=== PATIENT | male | born 1940 | race Caucasian/White ===

== ENCOUNTER 2019-06-19 11:33 | Day surgery (SDC) | payer MEDICARE ==
[~2019-06-19] VITALS: Ht 175.3 cm; Wt 88.5 kg
[~2019-06-19 11:33] MED LIST: AMLO10TA PO; ATOR10TA87 PO; CALC0.253 PO; FLO0.4C PO; IRON-12 PO; POLY17PO36 PO; SODI650T29 PO
[2019-06-19] MEDS ORDERED: normal saline 1000ml 1,000 ML IV SCH (12:00)
[2019-06-19] MEDS ORDERED: ASPI81TA30 PO (12:03)
[2019-06-19 13:00] VITALS: BP 159/88
[2019-06-19] MEDS ORDERED: fentaNYL/PF 50MCG/1 ML 2ML syringe IV PRN (13:10)
[2019-06-19] MEDS ORDERED: heparin 1,000 units/ml 10ml inj ICATH ONE (13:10)
[2019-06-19] MEDS ORDERED: LIDOcaine 1%/PF 5ML 10 MG/ML VIAL SQ ONE (13:10)
[2019-06-19] MEDS ORDERED: midazolam 2 mg/2 ml injection IV PRN (13:10)
[2019-06-19] MEDS ORDERED: fentaNYL/PF 50MCG/1 ML 2ML syringe ONE (13:17)
[2019-06-19] MEDS ORDERED: heparin 1,000unit/ml 10ml vial 10 ML ONE (13:17)
[2019-06-19] MEDS ORDERED: LIDOcaine 1%/PF 5ML 10 MG/ML VIAL ONE (13:17)
[2019-06-19] MEDS ORDERED: midazolam 2 mg/2 ml injection ONE (13:17)
[2019-06-19] MEDS ORDERED: gelatin sponge, absorbable (Gelfoam 12-7MM) sponge TP ONE (14:08)
[2019-06-19 14:28] VITALS: BP 168/87
[2019-06-19 14:45] VITALS: BP 162/89
[2019-06-19 15:00] VITALS: BP 151/90
== END 2019-06-19 15:30 | disposition home or self-care (01) ==
LOC: SSTAY O 11:33
PROVIDERS: ATTEND Radiology Diagnostic Radiology
DX: I12.0 Hypertensive chronic kidney disease with stage 5 chronic kidney disease or end stage renal disease (principal); N18.6 End stage renal disease; Z79.899 Other long term (current) drug therapy; Z79.82 Long term (current) use of aspirin
CPT/HCPCS: 36558; 76937; 77001; 99152; 99153; C1750; C1894; J1644; J2250; J3010; J7030; A9270

== ENCOUNTER 2019-09-11 17:32 | Inpatient (IN) | payer MEDICARE ==
[~2019-09-11] VITALS: Ht 175.3 cm; Wt 82.5 kg
[~2019-09-11 17:32] MED LIST changes: -AMLO10TA PO; +ASPI81TA30 PO; -ATOR10TA87 PO; -IRON-12 PO; -POLY17PO36 PO; -SODI650T29 PO
[2019-09-11 18:19] LABS: CLARITY,URINE CLEAR (Clear); COLOR,URINE YELLOW (Yellow); GLUCOSE, URINE 250 mg/dl (Neg); KETONES,URINE NEGATIVE (Neg); LEUKOCYTE ESTERASE ,URINE NEGATIVE (Neg); NITRITES, URINE NEGATIVE (Neg); OCCULT BLOOD,URINE TRACE-INTACT (Neg); PH,URINE 8.5 (4.8-8.0); PROTEIN,URINE 30 mg/dl (Neg); UROBILINOGEN,URINE 0.2 E.U/dL (0.2-1.0)
[2019-09-11 18:25] LABS: UA COLLECTION TYPE URINAL
[2019-09-11 18:26] LABS: BACTERIA,URINE NONE SEEN /HPF (Neg); MUCUS STRANDS FEW /LPF (Neg); RBC,URINE 0-2 /HPF (0-2); SQUAMOUS EPITHELIAL CELL,UR NONE SEEN /LPF (FEW); WBC,URINE NONE SEEN /HPF (0-4)
[2019-09-11 18:31] LABS: URINE AMPHETAMINE SCREEN NEGATIVE (Neg); URINE BARBITUATE SCREEN NEGATIVE (Neg); URINE BENZODIAZEPINES SCREEN NEGATIVE (Neg); URINE CANNABINOID SCREEN NEGATIVE (Neg); URINE COCAINE SCREEN NEGATIVE (Neg); URINE METHADONE SCREEN NEGATIVE (Neg); URINE OPIATE SCREEN NEGATIVE (Neg); URINE PHENCYCLIDINE SCREEN NEGATIVE (Neg)
[2019-09-11 19:08] LABS: BASOPHILS % (AUTO) 1.3 % (0-1); EOSINOPHILS # (AUTO) 0.2 X10'3 (0-0.9); EOSINOPHILS % (AUTO) 5.4 % (0-6); HEMATOCRIT 30.7 % (42.0-52.0); HEMOGLOBIN 10.3 g/dl (14.0-17.9); LYMPHOCYTES # (AUTO) 0.7 X10'3 (1.1-4.8); LYMPHOCYTES % (AUTO) 20.8 % (21-51); MEAN CORPUSCULAR HEMOGLOBIN 31.4 PG (27.0-31.0); MEAN CORPUSCULAR HGB CONC 33.5 g/dL (33.0-36.5); MEAN CORPUSCULAR VOLUME 93.6 FL (78-98); MEAN PLATELET VOLUME 7.5 FL (7.4-10.4); MONOCYTES # (AUTO) 0.4 X10'3 (0-0.9); MONOCYTES % (AUTO) 11.6 % (2-12); NEUTROPHILS # (AUTO) 2.1 X10'3 (1.8-7.7); NEUTROPHILS % (AUTO) 60.9 % (42-75); PLATELET COUNT 149 X10'3 (140-440); RED BLOOD COUNT 3.28 X10'6 (4.70-6.10); RED CELL DISTRIBUTION WIDTH 16.4 % (11.5-14.5); WHITE BLOOD COUNT 3.4 X10'3 (4.5-11.0)
[2019-09-11 19:25] LABS: ALANINE AMINOTRANSFERASE 13 U/L (12-78); ALKALINE PHOSPHATASE 56 IU/L (46-116); ANION GAP 7 (8-16); ASPARTATE AMINO TRANSFERASE 7 U/L (10-37); BILIRUBIN,TOTAL 0.4 MG/DL (0.1-1.0); BLOOD UREA NITROGEN 33 MG/DL (7-18); BUN/CREATININE RATIO 5.4 (5.4-32.0); CALCIUM 7.9 MG/DL (8.5-10.1); CHLORIDE 105 MMOL/L (99-107); GLUCOSE 84 MG/DL (70-104); POTASSIUM 4.4 MMOL/L (3.5-5.1); SODIUM 140 MMOL/L (135-145); TOTAL CARBON DIOXIDE 28.4 MMOL/L (24-32); TOTAL PROTEIN 5.9 G/DL (6.4-8.2); eGFR 9 ML/MIN
[2019-09-11 19:28] LABS: LACTIC SEPSIS 0.8 MMOL/L (0.4-2.0)
[2019-09-11 19:31] LABS: ETHANOL < 0.010 GM/DL (0.0-0.010); TROPONIN I < 0.04 NG/ML (0.0-0.05)
[2019-09-11 19:34] LABS: AMMONIA < 10 UMOL/L (11-32)
[2019-09-11] MEDS ORDERED: aspirin 325mg tablet PO ONE (20:30)
[2019-09-11] MEDS ORDERED: acetaminophen 325mg tablet PO PRN (21:45)
[2019-09-11] MEDS ORDERED: acetaminophen 650mg rectal suppository RC PRN (21:45)
[2019-09-11] MEDS ORDERED: bisacodyl 10mg suppository rectal RC PRN (21:45)
[2019-09-11 23:00] VITALS: BP 190/98
[2019-09-11] MEDS: heparin, porcine 5000 units/ml vial SQ SCH (23:12)
[2019-09-12 02:00] VITALS: BP 158/77
[2019-09-12 06:00] VITALS: BP 173/86
--- NOTE | 2019-09-12 06:26 | NUR ---
Problems reprioritized. Patient report given, questions answered & plan of care reviewed with FORREST Wilder.
[2019-09-12 06:35] LABS: BASOPHILS # (AUTO) 0.1 X10'3 (0-0.2); BASOPHILS % (AUTO) 1.2 % (0-1); EOSINOPHILS # (AUTO) 0.2 X10'3 (0-0.9); EOSINOPHILS % (AUTO) 4.8 % (0-6); HEMATOCRIT 31.9 % (42.0-52.0); HEMOGLOBIN 10.7 g/dl (14.0-17.9); LYMPHOCYTES # (AUTO) 0.8 X10'3 (1.1-4.8); LYMPHOCYTES % (AUTO) 18.1 % (21-51); MEAN CORPUSCULAR HEMOGLOBIN 31.4 PG (27.0-31.0); MEAN CORPUSCULAR HGB CONC 33.7 g/dL (33.0-36.5); MEAN PLATELET VOLUME 7.5 FL (7.4-10.4); MONOCYTES # (AUTO) 0.4 X10'3 (0-0.9); MONOCYTES % (AUTO) 10.3 % (2-12); NEUTROPHILS # (AUTO) 2.8 X10'3 (1.8-7.7); NEUTROPHILS % (AUTO) 65.6 % (42-75); PLATELET COUNT 163 X10'3 (140-440); RED BLOOD COUNT 3.43 X10'6 (4.70-6.10); RED CELL DISTRIBUTION WIDTH 16.6 % (11.5-14.5); WHITE BLOOD COUNT 4.3 X10'3 (4.5-11.0)
--- NOTE | 2019-09-12 06:37 | NUR ---
Patient in room [facility]TH[facility] 4021. I have received report from Nicole Barnard RN and had the opportunity to ask questions and assume patient care.
[2019-09-12 06:46] LABS: PARTIAL THROMBOPLASTIN TIME 28 SECONDS (22-32)
[2019-09-12 06:55] LABS: ALANINE AMINOTRANSFERASE 13 U/L (12-78); ALBUMIN 3.1 G/DL (3.4-5.0); ALKALINE PHOSPHATASE 58 IU/L (46-116); ANION GAP 9 (8-16); ASPARTATE AMINO TRANSFERASE 14 U/L (10-37); BILIRUBIN,TOTAL 0.5 MG/DL (0.1-1.0); BLOOD UREA NITROGEN 42 MG/DL (7-18); BUN/CREATININE RATIO 5.4 (5.4-32.0); CALCIUM 8.6 MG/DL (8.5-10.1); CHLORIDE 104 MMOL/L (99-107); CHOLESTEROL 125 MG/DL (0-200); CREATININE 7.78 MG/DL (0.60-1.10); GLUCOSE 83 MG/DL (70-104); HDL CHOLESTEROL 63 MG/DL (35-60); LDL CHOLESTEROL 56 MG/DL (50-100); MAGNESIUM 1.9 MG/DL (1.5-2.4); PHOSPHORUS 5.2 MG/DL (2.3-4.5); POTASSIUM 5.1 MMOL/L (3.5-5.1); SODIUM 140 MMOL/L (135-145); TOTAL CARBON DIOXIDE 27.3 MMOL/L (24-32); TOTAL PROTEIN 6.2 G/DL (6.4-8.2); TRIGLYCERIDES 50 MG/DL (20-135); TROPONIN I < 0.04 NG/ML (0.0-0.05); eGFR 7 ML/MIN
[2019-09-12] MEDS: heparin, porcine 5000 units/ml vial SQ SCH ×2 (07:39→16:30)
[2019-09-12] MEDS: aspirin 325mg tablet PO SCH (07:39)
[2019-09-12 10:00] VITALS: BP 168/83
[2019-09-12] MEDS ORDERED: ATOR10TA70 PO (10:31)
[2019-09-12] MEDS ORDERED: DOXA2TAB6 PO (10:31)
[2019-09-12] MEDS ORDERED: FINA5TAB11 PO (10:31)
[2019-09-12] MEDS ORDERED: CALC667C5 PO (10:35)
[2019-09-12] MEDS: finasteride 5mg tablet PO SCH (11:35)
[2019-09-12] MEDS: calcitriol 0.25mcg capsule PO SCH (11:43)
[2019-09-12] MEDS: calcium acetate 667mg (PhosLO) capsule PO SCH ×2 (12:06→17:30)
[2019-09-12] MEDS: tamsulosin 0.4mg capsule PO SCH (12:06)
[2019-09-12] MEDS: doxazosin mesylate 2mg tablet PO SCH (12:06)
[2019-09-12 14:00] VITALS: BP 148/81
[2019-09-12] MEDS: ondansetron/PF 4mg/2ml inj IV PRN (16:03)
[2019-09-12 18:00] VITALS: BP 159/89
--- NOTE | 2019-09-12 18:23 | NUR ---
Problems reprioritized. Patient report given, questions answered & plan of care reviewed with Nicole Saleem RN.
[2019-09-12] MEDS ORDERED: LORazepam 2 mg/ml vial ONE (21:03)
[2019-09-12] MEDS ORDERED: LORazepam 2 mg/ml vial IV ONE (21:05)
--- NOTE | 2019-09-12 21:30 | NUR ---
PATIENT ALMOST FELL WHILE TRYING TO AMBULATE WITH STAFF. PATIENT PLACED IN RECLINER AND WOULD NOT FOLLOW DIRECTIONS TO HELP GET BACK TO BED. HE BECAME SOMEWHAT COMBATIVE. TRIED TO TAKE BS - PATIENT WOULD NOT ALLOW. SON TRIED TO HELP TO CONVINCE HIM TO BE MORE COOPERATIVE, HE CALLED PATIENTS . PATIENT CONTINUED TO SIT IN RECLINER, WITH SON AT BEDSIDE.
--- NOTE | 2019-09-12 22:05 | NUR ---
I had taken out Ativan for patient earlier in the shift but was unable to give the medication since patient adamantly refused it and became violent toward staff. Security had to be called for us to give the mediation to patient; pt's son was at bedside while this happened. Nursing staff had tried to reason with patient and give him time to relax on his own and get back to bed but he was unwilling to get out of chair to the bed. Earlier we had walked patient in hallway to try to calm him down and show him that he was not at home; but he became agitated and almost fell in the hallway so he was assisted to the recliner and put back in room. Ativan was given around 2204 when we had security at bedside to assist for safety. Addendum: 09/13/19 at 0203 by Nicole López RN PATIENT REFUSED VS
--- NOTE | 2019-09-12 23:00 | NUR ---
PATIENT CONTINUING TO TRY TO CLIMB OOB. RAILS UP AND PATIENT REDIRECTED TO STAY IN BED. OFFERED TO HELP HIM TO BATHROOM, DECLINED. CONSTANTLY RUNNING IN TO ROOM TO HELP PATIENT FROM GETTING STUCK IN RAILS AND PLACE LEGS BACK IN. TRIED TO GATCH BED, TRIED TO PLACE BARRIERS TO RAILS. CALLED [facility] FOR ANOTHER DOSE OF ATIVAN, SHE SAID SHE MAY GIVE HIM A SLEEPER.
[2019-09-13] MEDS ORDERED: zolpidem 5mg tablet PO PRN (00:05)
[2019-09-13] MEDS: heparin, porcine 5000 units/ml vial SQ SCH ×4 (00:19→16:00)
[2019-09-13] MEDS ORDERED: ziprasidone IM 20mg inj **IM only IM ONE (00:30)
--- NOTE | 2019-09-13 00:30 | NUR ---
PATIENT REFUSED AMBIEN, TRIED TO THROW WATER AT ME. CONTINUES TO PULL AT PADDING AND RAILS AND KICK OUT AND GRAB AT STAFF. CALLED [facility], NEW ORDER FOR KERRY. GIVEN IN R THIGH WITH HELP FROM OTHER STAFF. STAYED WITH PATIENT TRYING TO CALM HIM AND KEEP HIM SAFE. HE TRIED TO GET UP ON HIS KNEES, ALMOST HIT HIS HEAD, CALLED FOR YESSICA JEAN AND GOT ORDER FOR RESTRAINTS AND ANOTHER DOSE OF ATIVAN. Addendum: 09/13/19 at 0205 by Nicole López RN SEPTEMBER NOTIFIED THAT I WAS UNABLE TO GIVE HEPARIN, GET VS OR BS. SHE CAME UP TO FLOOR WHEN YESSICA JEAN WAS CALLED. WITNESSED PATIENT BEING COMBATIVE AND IMPULSIVE.
[2019-09-13] MEDS ORDERED: LORazepam 2 mg/ml vial IV ONE (01:05)
[2019-09-13] MEDS ORDERED: LORazepam 2 mg/ml vial IV PRN (01:10)
[2019-09-13 04:00] VITALS: BP 181/87
--- NOTE | 2019-09-13 06:35 | NUR ---
Problems reprioritized. Patient report given, questions answered & plan of care reviewed with FORREST Osuna.
--- NOTE | 2019-09-13 06:42 | NUR ---
Received report from Nicole CLAYTON
[2019-09-13 06:50] VITALS: BP 174/90
--- NOTE | 2019-09-13 07:22 | NUR ---
Patient refusing AM accucheck. will notify primary RN.
[2019-09-13] MEDS: calcium acetate 667mg (PhosLO) capsule PO SCH ×3 (07:30→17:30)
[2019-09-13] MEDS: finasteride 5mg tablet PO SCH (08:00)
[2019-09-13] MEDS: tamsulosin 0.4mg capsule PO SCH (08:00)
[2019-09-13] MEDS: calcitriol 0.25mcg capsule PO SCH (08:00)
[2019-09-13] MEDS: doxazosin mesylate 2mg tablet PO SCH (08:00)
[2019-09-13] MEDS: aspirin 325mg tablet PO SCH (08:00)
[2019-09-13] MEDS ORDERED: hydrALAZINE 20mg/ml inj. IV ONE (12:10)
[2019-09-13 12:46] VITALS: BP 186/84
[2019-09-13 16:00] VITALS: BP 146/78
[2019-09-13 17:49] VITALS: BP 146/84
[2019-09-13 18:00] VITALS: BP 146/84
[2019-09-13] MEDS: QUEtiapine 25mg tablet PO SCH (22:34)
[2019-09-14] MEDS: heparin, porcine 5000 units/ml vial SQ SCH ×3 (02:01→16:32)
[2019-09-14 05:00] VITALS: BP 193/123
[2019-09-14] MEDS: hydrALAZINE 20mg/ml inj. IV PRN ×2 (05:14→21:25)
[2019-09-14 06:00] VITALS: BP 209/104
--- NOTE | 2019-09-14 06:36 | NUR ---
RECEIVED REPORT FROM MAJOR RN
[2019-09-14 06:39] LABS: BASOPHILS # (AUTO) 0.1 X10'3 (0-0.2); BASOPHILS % (AUTO) 1.2 % (0-1); EOSINOPHILS # (AUTO) 0.2 X10'3 (0-0.9); HEMOGLOBIN 11.1 g/dl (14.0-17.9); LYMPHOCYTES % (AUTO) 20.8 % (21-51); MEAN CORPUSCULAR HEMOGLOBIN 31.5 PG (27.0-31.0); MEAN CORPUSCULAR HGB CONC 33.7 g/dL (33.0-36.5); MEAN CORPUSCULAR VOLUME 93.2 FL (78-98); MEAN PLATELET VOLUME 7.8 FL (7.4-10.4); MONOCYTES # (AUTO) 0.5 X10'3 (0-0.9); MONOCYTES % (AUTO) 10.4 % (2-12); NEUTROPHILS % (AUTO) 62.6 % (42-75); PLATELET COUNT 134 X10'3 (140-440); RED BLOOD COUNT 3.54 X10'6 (4.70-6.10); RED CELL DISTRIBUTION WIDTH 16.1 % (11.5-14.5); WHITE BLOOD COUNT 4.8 X10'3 (4.5-11.0)
[2019-09-14 06:53] LABS: PARTIAL THROMBOPLASTIN TIME 29 SECONDS (22-32)
[2019-09-14 07:01] LABS: ALANINE AMINOTRANSFERASE 15 U/L (12-78); ALBUMIN 3.1 G/DL (3.4-5.0); ALKALINE PHOSPHATASE 59 IU/L (46-116); ANION GAP 13 (8-16); ASPARTATE AMINO TRANSFERASE 10 U/L (10-37); BILIRUBIN,TOTAL 0.4 MG/DL (0.1-1.0); BLOOD UREA NITROGEN 56 MG/DL (7-18); BUN/CREATININE RATIO 5.2 (5.4-32.0); CHLORIDE 105 MMOL/L (99-107); CREATININE 10.73 MG/DL (0.60-1.10); GLUCOSE 88 MG/DL (70-104); MAGNESIUM 2.1 MG/DL (1.5-2.4); PHOSPHORUS 6.3 MG/DL (2.3-4.5); POTASSIUM 5.4 MMOL/L (3.5-5.1); SODIUM 140 MMOL/L (135-145); TOTAL CARBON DIOXIDE 22.5 MMOL/L (24-32); TOTAL PROTEIN 6.2 G/DL (6.4-8.2); eGFR 5 ML/MIN
[2019-09-14] MEDS: aspirin 325mg tablet PO SCH (07:49)
[2019-09-14] MEDS: calcium acetate 667mg (PhosLO) capsule PO SCH ×3 (07:50→21:18)
[2019-09-14] MEDS: doxazosin mesylate 2mg tablet PO SCH (07:50)
[2019-09-14] MEDS: tamsulosin 0.4mg capsule PO SCH (07:50)
[2019-09-14] MEDS: calcitriol 0.25mcg capsule PO SCH (07:50)
[2019-09-14 08:00] VITALS: BP 164/94
[2019-09-14] MEDS: finasteride 5mg tablet PO SCH (09:43)
[2019-09-14 10:00] VITALS: BP 162/96
[2019-09-14 18:00] VITALS: BP 167/97
[2019-09-14] MEDS: QUEtiapine 25mg tablet PO SCH (20:14)
[2019-09-14 22:00] VITALS: BP 200/107
[2019-09-15] MEDS: heparin, porcine 5000 units/ml vial SQ SCH ×3 (00:32→17:34)
[2019-09-15 00:42] VITALS: BP 169/86
[2019-09-15 05:39] VITALS: BP 175/86
[2019-09-15 06:00] VITALS: BP 183/87
--- NOTE | 2019-09-15 06:36 | NUR ---
Patient in room [facility]TH[facility] 4021. I have received report from Macy RN and had the opportunity to ask questions and assume patient care.
[2019-09-15 06:37] LABS: BASOPHILS # (AUTO) 0.1 X10'3 (0-0.2); BASOPHILS % (AUTO) 1.3 % (0-1); EOSINOPHILS # (AUTO) 0.3 X10'3 (0-0.9); EOSINOPHILS % (AUTO) 6.4 % (0-6); HEMATOCRIT 31.5 % (42.0-52.0); HEMOGLOBIN 10.6 g/dl (14.0-17.9); LYMPHOCYTES # (AUTO) 0.8 X10'3 (1.1-4.8); LYMPHOCYTES % (AUTO) 16.7 % (21-51); MEAN CORPUSCULAR HEMOGLOBIN 31.7 PG (27.0-31.0); MEAN CORPUSCULAR HGB CONC 33.5 g/dL (33.0-36.5); MEAN CORPUSCULAR VOLUME 94.5 FL (78-98); MEAN PLATELET VOLUME 7.9 FL (7.4-10.4); MONOCYTES # (AUTO) 0.5 X10'3 (0-0.9); MONOCYTES % (AUTO) 10.5 % (2-12); NEUTROPHILS % (AUTO) 65.1 % (42-75); PLATELET COUNT 121 X10'3 (140-440); RED BLOOD COUNT 3.33 X10'6 (4.70-6.10); RED CELL DISTRIBUTION WIDTH 16.4 % (11.5-14.5); WHITE BLOOD COUNT 4.6 X10'3 (4.5-11.0)
--- NOTE | 2019-09-15 07:00 | NUR ---
Pt having HTN 220/114 at this time, PRN given per MD order.
[2019-09-15] MEDS: hydrALAZINE 20mg/ml inj. IV PRN ×2 (07:01→17:35)
[2019-09-15 07:03] LABS: ALANINE AMINOTRANSFERASE 12 U/L (12-78); ALBUMIN 3.2 G/DL (3.4-5.0); ALBUMIN/GLOBULIN RATIO 1.1 (1.1-1.5); ALKALINE PHOSPHATASE 56 IU/L (46-116); ANION GAP 13 (8-16); ASPARTATE AMINO TRANSFERASE 10 U/L (10-37); BILIRUBIN,TOTAL 0.4 MG/DL (0.1-1.0); BLOOD UREA NITROGEN 70 MG/DL (7-18); BUN/CREATININE RATIO 5.9 (5.4-32.0); CALCIUM 9.5 MG/DL (8.5-10.1); CHLORIDE 105 MMOL/L (99-107); CREATININE 11.81 MG/DL (0.60-1.10); GLUCOSE 99 MG/DL (70-104); MAGNESIUM 2.2 MG/DL (1.5-2.4); PHOSPHORUS 6.9 MG/DL (2.3-4.5); POTASSIUM 5.7 MMOL/L (3.5-5.1); SODIUM 139 MMOL/L (135-145); TOTAL CARBON DIOXIDE 20.7 MMOL/L (24-32); TOTAL PROTEIN 6.2 G/DL (6.4-8.2); eGFR 4 ML/MIN
[2019-09-15] MEDS: tamsulosin 0.4mg capsule PO SCH (07:48)
[2019-09-15] MEDS: aspirin 325mg tablet PO SCH (07:48)
[2019-09-15] MEDS: calcium acetate 667mg (PhosLO) capsule PO SCH ×3 (07:48→17:34)
[2019-09-15] MEDS: calcitriol 0.25mcg capsule PO SCH (07:48)
[2019-09-15] MEDS: doxazosin mesylate 2mg tablet PO SCH (07:48)
[2019-09-15] MEDS: finasteride 5mg tablet PO SCH (07:49)
[2019-09-15 08:00] VITALS: BP 183/87
[2019-09-15] MEDS ORDERED: epoetin 20,000 units/ml inj IV ONE (08:00)
[2019-09-15] MEDS ORDERED: albumin (human) 25% 100ml IV 100 ML IV PRN (08:00)
[2019-09-15] MEDS ORDERED: LIDOcaine 1% (10mg/ml) 2ml vial SQ ONE (08:00)
[2019-09-15] MEDS ORDERED: heparin 1,000 units/ml 10ml inj HE ONE ×2 (08:00)
[2019-09-15] MEDS ORDERED: normal saline 1000ml 250 ML IV PRN (08:00)
--- NOTE | 2019-09-15 16:08 | NUR ---
Patient has intermittent confusion, however uses the call light appropriately. was at bedside in the morning. Patient moves independently in the bed and has tabs alarm on for fall prevention. Will continue to monitor.
[2019-09-15 18:00] VITALS: BP 188/98
--- NOTE | 2019-09-15 18:03 | NUR ---
Problems reprioritized. Patient report given, questions answered & plan of care reviewed with Nicole CLAYTON.
--- NOTE | 2019-09-15 18:05 | NUR ---
Patient in room [facility]TH[facility] 4021. I have received report from FORREST Farris and had the opportunity to ask questions and assume patient care. Patient sitting up in bed eating dinner, at bedside. He is A&Ox3, BOWEN and is appropriate. The dialysis nurse is at bedside and patient will have HB tonight.
[2019-09-15] MEDS: QUEtiapine 25mg tablet PO SCH (21:31)
[2019-09-15 22:00] VITALS: BP 153/93
--- NOTE | 2019-09-15 23:07 | NUR ---
Patient more confused tonight, seroquel was given at bed time. 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 I will continue to monitor, may need a sitter.
[2019-09-16 06:00] VITALS: BP 184/82
[2019-09-16 06:08] LABS: BASOPHILS % (AUTO) 1.3 % (0-1); EOSINOPHILS # (AUTO) 0.2 X10'3 (0-0.9); EOSINOPHILS % (AUTO) 5.9 % (0-6); HEMATOCRIT 35.3 % (42.0-52.0); HEMOGLOBIN 11.9 g/dl (14.0-17.9); LYMPHOCYTES # (AUTO) 0.6 X10'3 (1.1-4.8); LYMPHOCYTES % (AUTO) 16.8 % (21-51); MEAN CORPUSCULAR HEMOGLOBIN 31.6 PG (27.0-31.0); MEAN CORPUSCULAR HGB CONC 33.8 g/dL (33.0-36.5); MEAN CORPUSCULAR VOLUME 93.7 FL (78-98); MEAN PLATELET VOLUME 8.2 FL (7.4-10.4); MONOCYTES # (AUTO) 0.4 X10'3 (0-0.9); MONOCYTES % (AUTO) 10.1 % (2-12); NEUTROPHILS # (AUTO) 2.5 X10'3 (1.8-7.7); NEUTROPHILS % (AUTO) 65.9 % (42-75); PLATELET COUNT 125 X10'3 (140-440); RED BLOOD COUNT 3.77 X10'6 (4.70-6.10); RED CELL DISTRIBUTION WIDTH 16.1 % (11.5-14.5); WHITE BLOOD COUNT 3.7 X10'3 (4.5-11.0)
--- NOTE | 2019-09-16 06:10 | NUR ---
Patient in room [facility]TH[facility] 4021. I have received report from FORREST Rivera and had the opportunity to ask questions and assume patient care.
[2019-09-16 06:26] LABS: ALANINE AMINOTRANSFERASE 11 U/L (12-78); ALBUMIN 3.2 G/DL (3.4-5.0); ALBUMIN/GLOBULIN RATIO 0.9 (1.1-1.5); ALKALINE PHOSPHATASE 62 IU/L (46-116); ANION GAP 6 (8-16); ASPARTATE AMINO TRANSFERASE 7 U/L (10-37); BILIRUBIN,TOTAL 0.4 MG/DL (0.1-1.0); BLOOD UREA NITROGEN 29 MG/DL (7-18); BUN/CREATININE RATIO 4.2 (5.4-32.0); CALCIUM 9.3 MG/DL (8.5-10.1); CHLORIDE 103 MMOL/L (99-107); CREATININE 6.86 MG/DL (0.60-1.10); GLUCOSE 134 MG/DL (70-104); PHOSPHORUS 4.2 MG/DL (2.3-4.5); POTASSIUM 4.5 MMOL/L (3.5-5.1); SODIUM 138 MMOL/L (135-145); TOTAL CARBON DIOXIDE 28.9 MMOL/L (24-32); TOTAL PROTEIN 6.6 G/DL (6.4-8.2); eGFR 8 ML/MIN
--- NOTE | 2019-09-16 06:35 | NUR ---
Problems reprioritized. Patient report given, questions answered & plan of care reviewed with FORREST Epps.
[2019-09-16] MEDS: calcitriol 0.25mcg capsule PO SCH (08:31)
[2019-09-16] MEDS: aspirin 325mg tablet PO SCH (08:31)
[2019-09-16] MEDS: calcium acetate 667mg (PhosLO) capsule PO SCH ×3 (08:31→17:38)
[2019-09-16] MEDS: finasteride 5mg tablet PO SCH (08:32)
[2019-09-16] MEDS: tamsulosin 0.4mg capsule PO SCH (08:32)
[2019-09-16] MEDS: heparin, porcine 5000 units/ml vial SQ SCH ×3 (08:33→16:14)
[2019-09-16] MEDS: doxazosin mesylate 2mg tablet PO SCH (08:36)
[2019-09-16] MEDS: hydrALAZINE 20mg/ml inj. IV PRN (08:51)
[2019-09-16 10:00] VITALS: BP 130/80
--- NOTE | 2019-09-16 12:30 | NUR ---
Initial: Pt admit w/ TIA concerns and expressive aphasia hx ESRD on HD. Pt PO 25-50% avg meals but does fluctuate w/ AOx3 at this time. Nepro TIDWM added pending MD verification since on HD and additional protein needs. Pending MD verification prior to sending on trays. LBM 09/14. Phos down to 4.2 from 6.9 and Creatinine down to 6.86 from 11.81 on admit. Will continue to monitor. Rec: 1. continue renal diet 2. Nepro TIDWM; pending MD verification prior to sending on trays 3. bowel care as needed 4. wt per rx Addendum: 09/16/19 at [address] Amended: Links added.
[2019-09-16] MEDS: NUT.TX.IMP.RENAL FXN,LAC-REDUC (Nepro) 237 ML VANILLA PO SCH ×2 (13:00→18:00)
--- NOTE | 2019-09-16 16:21 | NUR ---
Patient ambulated 600 ft using a walker with the break nurse.
--- NOTE | 2019-09-16 16:36 | NUR ---
Family members have asked about the plan of care for this patient. I spoke with Dr. Hall and he stated that the patient is to have dialysis on 09/17/19 and then he will be reevaluated. I gave the patient and his this information.
[2019-09-16 18:00] VITALS: BP 126/84
--- NOTE | 2019-09-16 18:22 | NUR ---
Problems reprioritized. Patient report given, questions answered & plan of care reviewed with FORREST Cavazos.
[2019-09-16] MEDS: QUEtiapine 25mg tablet PO SCH (20:38)
[2019-09-16 22:00] VITALS: BP 180/94
[2019-09-16] MEDS: ondansetron/PF 4mg/2ml inj IV PRN (22:42)
[2019-09-16 22:56] VITALS: BP 178/91
[2019-09-17] MEDS: heparin, porcine 5000 units/ml vial SQ SCH ×4 (01:10→15:30)
[2019-09-17 04:01] VITALS: BP 160/99
[2019-09-17 06:00] VITALS: BP 130/76
--- NOTE | 2019-09-17 06:36 | NUR ---
Patient in room [facility]TH[facility] 4021. I have received report from Macy RN and had the opportunity to ask questions and assume patient care.
[2019-09-17] MEDS ORDERED: heparin 1,000 units/ml 10ml inj HE ONE ×4 (08:00→16:00)
[2019-09-17] MEDS ORDERED: normal saline 1000ml 250 ML IV PRN (08:00)
[2019-09-17] MEDS ORDERED: albumin (human) 25% 100ml IV 100 ML IV PRN ×2 (08:00→15:55)
[2019-09-17] MEDS ORDERED: LIDOcaine 1% (10mg/ml) 2ml vial SQ ONE (08:00)
[2019-09-17] MEDS: calcitriol 0.25mcg capsule PO SCH (08:22)
[2019-09-17] MEDS: calcium acetate 667mg (PhosLO) capsule PO SCH ×3 (08:22→17:30)
[2019-09-17] MEDS: tamsulosin 0.4mg capsule PO SCH (08:22)
[2019-09-17] MEDS: aspirin 325mg tablet PO SCH (08:22)
[2019-09-17] MEDS: doxazosin mesylate 2mg tablet PO SCH (08:22)
[2019-09-17] MEDS: finasteride 5mg tablet PO SCH (08:23)
[2019-09-17] MEDS: NUT.TX.IMP.RENAL FXN,LAC-REDUC (Nepro) 237 ML VANILLA PO SCH ×3 (08:23→18:00)
[2019-09-17] MEDS ORDERED: QUET25TA34 PO (09:54)
[2019-09-17] MEDS ORDERED: ASPI-1 PO (09:54)
[2019-09-17 10:00] VITALS: BP 173/101
[2019-09-17] MEDS ORDERED: heparin 1,000unit/ml 10ml vial 10 ML IV ONE (15:53)
[2019-09-17 18:00] VITALS: BP 156/100
--- NOTE | 2019-09-17 18:34 | NUR ---
Problems reprioritized. Patient report given, questions answered & plan of care reviewed with Jonathan CLAYTON.
--- NOTE | 2019-09-17 19:00 | NUR ---
Patient in room [facility]TH[facility] 4021. I have received report from Meño Vann RN and had the opportunity to ask questions and assume patient care.
[2019-09-17] MEDS: QUEtiapine 25mg tablet PO SCH (21:00)
[2019-09-17] MEDS ORDERED: ondansetron/PF 4mg/2ml inj IV PRN (21:20)
[2019-09-17 21:56] VITALS: BP 175/99
[2019-09-18 06:00] VITALS: BP 166/82
[2019-09-18] MEDS: doxazosin mesylate 2mg tablet PO SCH (07:42)
[2019-09-18] MEDS: calcium acetate 667mg (PhosLO) capsule PO SCH (07:42)
[2019-09-18] MEDS: aspirin 325mg tablet PO SCH (07:42)
[2019-09-18] MEDS: calcitriol 0.25mcg capsule PO SCH (07:42)
[2019-09-18] MEDS: tamsulosin 0.4mg capsule PO SCH (07:42)
[2019-09-18] MEDS: heparin, porcine 5000 units/ml vial SQ SCH ×2 (07:43)
[2019-09-18] MEDS: NUT.TX.IMP.RENAL FXN,LAC-REDUC (Nepro) 237 ML VANILLA PO SCH (07:43)
[2019-09-18] MEDS: finasteride 5mg tablet PO SCH (07:48)
[2019-09-18 10:00] VITALS: BP 145/95
--- NOTE | 2019-09-18 10:03 | NUR ---
Patient in room [facility]TH[facility] 4021. I have received report from Meño CLAYTON and had the opportunity to ask questions and assume patient care.
--- NOTE | 2019-09-18 10:06 | NUR ---
Problems reprioritized. Patient report given, questions answered & plan of care reviewed with Tori CLAYTON.
[2019-09-18] MEDS ORDERED: ATOR10TA87 PO (11:06)
--- NOTE | 2019-09-18 11:20 | NUR ---
Discharged patient home with son at this time. Escorted out per [facility] staff via W/C without event. Discussed education and instructions with patient, verbalized understanding. To follow up with primary physician. IV removed, cathlon intact. Medications called into [facility] on [address]. Belongings sent home with patient, eager to go home.
== END 2019-09-18 12:15 | disposition home or self-care (01) | DRG 69 ==
LOC: ER 17:33 → ED HOLD 21:57 → ORTHO 4S 22:53
PROC: 4A10X4Z Monitoring of Central Nervous Electrical Activity, External Approach (ICD-10-PCS; principal; 2019-09-13)
PROC: 5A1D70Z Performance of Urinary Filtration, Intermittent, Less than 6 Hours Per Day (ICD-10-PCS; 2019-09-15)
PROC: 5A1D70Z Performance of Urinary Filtration, Intermittent, Less than 6 Hours Per Day (ICD-10-PCS; 2019-09-17)
DX: G45.9 Transient cerebral ischemic attack, unspecified (principal); N18.6 End stage renal disease; R47.01 Aphasia; I12.0 Hypertensive chronic kidney disease with stage 5 chronic kidney disease or end stage renal disease; R19.7 Diarrhea, unspecified; R34 Anuria and oliguria; F03.90 Unspecified dementia, unspecified severity, without behavioral disturbance, psychotic disturbance, mood disturbance, and anxiety; N40.0 Benign prostatic hyperplasia without lower urinary tract symptoms; Z79.82 Long term (current) use of aspirin; Z85.51 Personal history of malignant neoplasm of bladder; Z85.828 Personal history of other malignant neoplasm of skin; Z86.79 Personal history of other diseases of the circulatory system; Z87.891 Personal history of nicotine dependence; Z99.2 Dependence on renal dialysis; Z79.899 Other long term (current) drug therapy
CPT/HCPCS: 36415; 70450; 70544; 70551; 71045; 80053; 80061; 80305; 80320; 81001; 82140; 82948; 83605; 83735; 84100; 84484; 85025; 85610; 85730; 87081; 87088; 93005; 93306; 93880; 95816; 97110; 97116; 97161; 97530; 99285; G0257; G0378; J0360; J1644; J2060; J2405; J3486; Q4081